=== PATIENT | male | born 1970 | race Caucasian/White ===

== ENCOUNTER → 2025-02-14 13:03 | Outpatient (REF) | payer BC, SELFPAY | LOC: RCS 13:03 | PROVIDERS: ATTENDING PHYSICIAN Internal Medicine; FAMILY PHYSICIAN Family Medicine | DX: I10 Essential (primary) hypertension (principal); Q23.1 Congenital insufficiency of aortic valve; I35.1 Nonrheumatic aortic (valve) insufficiency | CPT/HCPCS: 93306 ==

== ENCOUNTER 2025-08-12 12:18 | Inpatient (IN) | payer BC, SELFPAY ==
[2025-08-12] VITALS (51 sets, daily range): BP systolic 107–159; BP diastolic 56–91; BMI 41.5; BMI 42.8
--- NOTE | 2025-08-12 11:07 | ED TECH ---
A STROKE ALERT was called #[id number]# Per @11:07 AM.Cat Scan Notified.
--- NOTE | 2025-08-12 11:09 | CON.NEURO4 ---
Addendum entered and electronically signed by Kalpesh Bae MD 08/12/25 16:27:
Studies reviewed.
I have personally examined the patient. I reviewed and agree with the PUBLIC HEALTH ASSISTANT's Note.
My addenda:
Awake, alert, interactive. No acute distress.
Speech intact.
Follows 2-step requests w/o difficulty. No tremor.
Extra-ocular movements grossly intact.
Facial movements full and symmetric. Hearing intact to normal conversational volume.
Normal UE movements bilaterally.
Neck: full ROM.
Chest: no dyspnea
Heart: no JVD
Ext: (-) Clubbing, (-) Cyanosis, (-) Edema
IMPRESSIONS/RECOMMENDATIONS:
Abrupt onset of right homonymous hemianopsia, minimally demonstrated by clinical exam, clearly demonstrated by inability to read and by CT perfusion demonstrating a left occipital penumbra
Abrupt onset of acute ischemic stroke
Most likely due to
Recommendations:
� administer IV Tenecteplase (TNK) per protocol urgently while keeping patient's blood pressure to a goal of systolic less than 185 and diastolic less than 110 mmHg during infusion of TNK
� place the patient in medical ICU
� goal blood pressure over the next 24 hours would be less than 180/105 mmHg
� check MRI of the brain within 22-32 hours of TNK without contrast for localization of the stroke
� check �MRA of the head without contrast and an MRA of the neck with contrast
� hold all antiplatelets, OAC meds, DOAC meds, heparinoids for next 24 hours
� check lipid panel and hemoglobin A1c
� start atorvastatin 80 mg at bedtime if LDL greater than 70
� goal blood glucose levels for patient would be less than 180 mg/dL
� Speech, PT, OT evaluations needed
� DVT prophylaxis with sequential compression devices over next 24 hours, can be started on Enoxaparin subcutaneous for DVT prophylaxis beginning 24 hours after TNK provision.
� medical educational materials will be provided
� check an echocardiogram, with the assistance of cardiology, consider transesophageal echocardiogram based on patient's relatively young age
Total Critical Care Time= 45 minutes.
The neurological system is affected and the action required by me to prevent further deterioration or potential was control over the item listed first in the Impressions and Recommendations section of this note.
I was present and personally examined the patient. I discussed patient care with other professional health care providers.
Also discussed with family.
We will follow.
Original Note:
Documented by User: Shiela Woodward NP 08/12/25 13:09
Consultation - Neurology 4
-
CONSULTING PHYSICIAN: Kalpesh Bae MD
REFERRING PHYSICIAN: ER/Dr. Watkins
DICTATED BY: HANH Moreira
DATE/TIME OF REQUEST: 08/12/25
DATE/TIME OF CONSULTATION: 08/12/25
Reason for Consultation: Stroke Alert
History of Present Illness:
This is a 55-year-old male who has presented to the hospital with report of right-sided vision loss. Patient reports that he woke up around 0315 this morning in his usual state. At 0940, he was sitting at his desk this morning at work when he
suddenly couldn't see the words on the right side of his computer screen. His vision did not improve, prompting him to come to the ER for evaluation. CT head and CTA head/neck was obtained on arrival and is negative for any acute abnormalities. CT
perfusion is suggestive of a hyperacute lack of blood flow in the left occipital lobe. NIHSS is 1 for a bilateral right field cut. He notes having a left temporal head pressure with symptom onset, that has mostly resolved now. He denies any
dizziness, speech/swallow difficulty, numbness, and weakness. He denies any history of migraines, regular headaches, or symptoms like this in the past. He is not taking any blood-thinning medications.
Past Medical History: HTN, HLD, MEAGAN (cap), obesity
Surgical History: back surgery, hand surgery
Family History: Paternal grandfather- ALS
Social History: Occasional alcohol. Denies tobacco and illicit drug use.
Allergies: No known allergies.
Home Medications: See below.
Review of Symptoms:
Patient denies any fever, headache, chest pain, shortness of breath, GI or symptoms.
�Per the HPI.�All systems are reviewed negative except above.
Physical Exam:
The patient is afebrile, abdomen is nondistended, breathing is unlabored, and skin is warm and dry, no edema.
NIH Stroke Scale:
I performed the NIH stroke scale on the patient on 08/12/25 at 1100. The patient scored 1 points on the NIH stroke scale assessment, which were assigned as follows: See below.
Neurologic Examination:
The patient is awake, alert and oriented x 3. He is able to follow commands and answer questions appropriately. There is no aphasia or dysarthria. On cranial nerve assessment, pupils are 3 mm bilateral, round and reactive to light and
accommodation. Visual diaz are grossly intact to finger wave but are reduced on the right side bilaterally with reading, only able to see left half of words. Extraocular movements are intact. Facial sensations are intact and bilaterally
symmetrical, there is no facial asymmetry. Hearing is intact bilaterally to normal conversation volume. Tongue palate and uvula are midline. Sternocleidomastoid strengths are full bilaterally. Motor strengths are 5/5 bilateral upper and lower
extremities on medical research Lefor scale. There is no drift or involuntary movement noted. There was no extinction noted on double simultaneous stimulation. Coordination is intact by finger to nose bilaterally.
Lab Results: See below.
Neuro Imaging:
1. CT Head 08/12/25: No acute intracranial abnormality. ASPECT score: 10.
2. CTA Head/Neck 08/12/25: No CTA evidence for high-grade stenosis or occlusion of the [place] or the arterial vasculature in the neck.
3. CT Perfusion 08/12/25: CBF 0, TMAX 18ml in the left occipital lobe.
Differentials for the patient's presentation include:
1. Concern for an acute ischemic stroke producing right-sided visual disturbance given penumbra on CT brain perfusion imaging.
Patient has the following risk factors for their symptoms: HTN, HLD
IV Tenecteplase/IAT candidacy: Candidate for TNK given debilitating neurological deficit, no LVO for IAT.
Recommendations:
� administer IV Tenecteplase (TNK) per protocol urgently while keeping patient's blood pressure to a goal of systolic less than 185 and diastolic less than 110 mmHg during infusion of TNK
Reviewed risks/benefits of TNK with patient and his spouse
� place the patient in medical ICU
� goal blood pressure over the next 24 hours would be less than 180/105 mmHg
� check MRI of the brain within 22-32 hours of TNK without contrast for localization of the stroke
� hold all antiplatelets, OAC meds, DOAC meds, heparinoids for next 24 hours
� check lipid panel and hemoglobin A1c
� start atorvastatin 80 mg at bedtime when patient is able to take PO
� goal blood glucose levels for patient would be less than 180 mg/dL
� Speech, PT, OT evaluations needed
� DVT prophylaxis with sequential compression devices over next 24 hours, can be started on Enoxaparin subcutaneous for DVT prophylaxis beginning 24 hours after TNK provision.
� medical educational materials will be provided
� check an echocardiogram
We will follow.
Discussed patient care with: Dr. Bae, the patient, patient's spouse
Vital Signs and Labs
-
Vital Signs and Labs:
Vital Signs
Pulse Resp BP Pulse Ox
87 21 146/65 96
08/12/25 11:32 08/12/25 11:32 08/12/25 11:30 08/12/25 11:32
Medications
-
Home Medications
�Medication �Instructions �Recorded
lisinopril 20 mg tablet 20 mg PO DAILY 08/12/25
NIH Stroke Score
Subsequent NIH Scale
Date of Subsequent NIH Scale: 08/12/25
Time of Subsequent NIH Scale: 11:00
NIH Stroke Score
Level of Consciousness: 0 - Alert
LOC Questions: 0-Answers both correctly
LOC Commands: 0-Performs both correctly
Best Horizontal Gaze: 0-Normal
Visual Diaz: 1=Partial hemianopia
Facial Palsy: 0=Normal, symmetrical
Motor - Right Arm: 0=No drift 10 seconds
Motor - Left Arm: 0=No drift 10 seconds
Motor - Right Le-No drift 5 seconds
Motor - Left Le-No drift 5 seconds
Limb Ataxia: 0-Absent
Sensation: 0-Normal
Best Language: 0-No aphasia
Dysarthria: 0-Normal
Extinction and Inattention: 0-No abnormality
NIH Total Score:: 1
Modified [place] (mRS) Score
Modified [place] Scale (mRS): Slight disability. Able to look after own affairs.
Score: 2
Alteplase Contraindication
Inclusion and Exclusion criteria reviewed: Yes
IAT Contraindications: Imaging doesn't show large vessel occlusion as cause of stroke

Documented by User: Kalpesh Bae MD 08/12/25 16:25
NIH Stroke Score
NIH Stroke Score
NIH Total Score:: 1
Modified [place] (mRS) Score
Score: 2
--- NOTE | 2025-08-12 11:13 | ED.GENMED ---
History of Present Illness
General
Chief Complaint: Visual Problem
Source: patient
Exam Limitations: none
Time Seen by Provider: 08/12/25 10:57
Nursing documentation reviewed up to this point in time: agreed with
History of Present Illness
History of Present Illness:
Patient with history of hypertension on lisinopril, presents to ED secondary to sudden onset of visual deficit while he was at work around 9:40 AM. Per patient, as he was looking in the computer, he had difficult visualizing right half of the
monitor. Denies headache. Denies nausea or vomiting. Denies dizziness. Denies loss of sensation or weakness. Denies difficulty speech or swallowing. Denies difficulty with ambulation. Denies previous history of similar symptoms. Denies
recent illness. Denies recent change in medications or diet.
Review of Systems
Review of Systems
Allergies reviewed?: Yes
All Other Systems: ROS reviewed and negative except as documented in HPI and ROS
Constitutional: Reports no symptoms; Denies fever
Respiratory: Reports no symptoms
Cardiac: Reports no symptoms
ABD/GI: Reports no symptoms
Musculoskeletal: Reports no symptoms
Skin: Reports no symptoms
Neurological: Reports other (visual field deficit)
Phy Exam
Physical Exam
Physical Exam:
Physical Exam
General: no apparent distress, not acutely ill. afebrile
Head: nc/at. eomi
Neck: supple. no meningeal signs.
Heart: s1/s2 regular rate and rhythm
Lungs: no acute respiratory distress. clear bilaterally
Abdomen: normal bowel sounds. not tender.
Neuro: alert and oriented x 3. no focal sensory/motor deficit. normal speech. right hemianopia noted
Skin: no rash
Psychiatric: well kept. interactive and cooperative
Extremities: no edema. no calf tenderness.
Course
Orders/Labs/Results
Orders:
Orders
08/12/25 10:29
CT HEAD STROKE ALERT W/o Cont Urgent
Reason For Exam: vision changes
08/12/25 11:[address]
CT BRAIN PERF STROKE ALERT Urgent
Comment:
Reason For Exam: aphasia
CT HEAD/NECK ANG STROKE ALERT Stat
Comment:
Reason For Exam: stenosis
08/12/25 11:12
Electrocardiogram (*1) Urgent
Reason for Study: TIA/Stroke
NEUROLOGY CONSULT Urgent
Consulting Provider: Kalpesh Bae
Was physician already notified: Yes
Reason for consult: visual field deficit
EKG- Treatment ONCE
08/12/25 11:20
Tenecteplase [Tnkase] 25 mg Syringe [Syringe Non-Pump] 0 ml IV NOW
Provider explained risk/benefits to patient &/or caregiver?: Yes
Blood pressure: 121/83
08/12/25 11:35
Complete Blood Count/No Diff Urgent
Comprehensive Metabolic Panel Urgent
Magnesium Urgent
PTT Urgent
Prothrombin Time Urgent
Abnormal Lab Results
08/12/25
11:35
RBC 4.46 L 10^6/uL
(4.70-6.10)
MCV 97.8 H fL
(80.0-94.0)
MCH 32.3 H pg
(27.0-31.0)
Sodium 133 L mmol/L
(135-145)
BUN 21 H mg/dl
(9-20)
08/12/25 11:35
08/12/25 11:35
Vital Signs
Initial and Last Documented VS:
Initial Vital Signs
Pulse Resp BP Pulse Ox
81 18 121/83 94
08/12/25 10:21 08/12/25 10:21 08/12/25 10:21 08/12/25 10:21
Last Documented Vital Signs
Temp Pulse Resp BP Pulse Ox
98.2 F 85 18 135/68 92
08/13/25 15:15 08/13/25 10:08 08/13/25 10:02 08/13/25 10:08 08/13/25 09:00
MDM/Problems Addressed
MDM/Problems Addressed:
After initial evaluation, stroke alert activated. Patient currently being evaluated by Dr. Bae, neurology.
CT head: NAD. recommends administering TnK.
Will admit to ICU for close monitoring
Critical care statement: A total of 30 minutes of critical care time was provided for this patient. This includes management of unstable vital signs, evaluation of the patient at bedside, reviewing the patient's pertinent medical records, discussion
with consultants, review of old EKGs and review of pertinent medical records. This time with separate from time utilized to perform the aforementioned documented procedures
*Pulse Oximetry
SaO2: 94
Oxygen Mode of Delivery: Room air
Patient hypoxic: no
*Critical Care Note
Total Time (30-74mins, 75-104mins- exclusive of procedures): 30 min
ED Attending Note
-
Portions of this chart may have been created with voice recognition software.� Occasional wrong word or��sound alike� substitutions may have occurred due to the inherent limitations of voice recognition software.
Discharge Plan
Departure
Patient Disposition: Admit
Date of Disposition: 08/12/25
Time of Disposition: 11:29
Admit to: ICU
Presentation/result/management discussed w/ accepting MD/DO: Hospitalist
Patient with high blood pressure during this ER visit?: Yes
Discharge Problem:
Visual field cut
Interventions
Interventions:
*General Assessment Last Done: 08/12/25 10:21
*Neglect/Abuse Screening Last Done: 08/12/25 11:39
*ED- Fall Risk Assessment Last Done: 08/12/25 11:39
*ED Influenza Vaccine History Last Done: 08/12/25 11:39
*Nursing Disposition Last Done: 08/12/25 11:59
ED- Neurological Assessment Last Done: 08/12/25 11:24
ED-EENT Assessment Last Done: 08/12/25 11:39
ED Swallowing Screen Last Done: 08/12/25 11:39
Discharge Date and Time
Discharge Date/Time: 08/12/25 12:01
[2025-08-12] MEDS: TNKASE 5 MG IV (11:36)
[2025-08-12 11:42] LABS: Hematocrit 43.6 % (39.0-52.0); Hemoglobin 14.4 g/dL (13.0-18.0); Mean Corp Hgb Conc. 33.0 g/dL (33.0-37.0); Mean Corpuscular Volume 97.8 fL (80.0-94.0); Platelet Count 226 10^3/uL (130-400); Red Cell Dist. Width 12.6 % (11.5-14.5)
--- NOTE | 2025-08-12 11:59 | EDRN ---
this RN called the receiving ICU nurse Helen SKAGGS and gave verbal report
[2025-08-12 12:04] LABS: ALT (SGPT) 32 U/L (0-50); AST (SGOT) 25 U/L (17-59); Albumin 4.1 g/dl (3.5-5.0); Alkaline Phosphatase 61 U/L (38-126); Blood Urea Nitrogen 21 mg/dl (9-20); Calcium 9.5 mg/dl (8.4-10.2); Carbon Dioxide 24 mmol/L (22-30); Chloride 105 mmol/L (98-107); Estimated Creatinine Clearance 104 ml/min; Glucose 96 mg/dl (70-99); Magnesium 2.1 mg/dl (1.6-2.3); Potassium 4.8 mmol/L (3.5-5.1); Sodium 133 mmol/L (135-145); Total Protein 6.9 g/dl (6.3-8.2); eGFR > 60.00
[2025-08-12 12:10] LABS: INR 1.03; PT 13.8 Sec (11.4-14.6)
[2025-08-12 12:11] LABS: APTT 28.5 Sec (23.4-35.0)
--- NOTE | 2025-08-12 12:38 | CON.INTV ---
Consultation
Consultation Request
Date/Time Consultation Requested: 08/12/2025
Date/Time Consultation Performed: 08/12/2025
Medical History
-
Chief Complaint: Change in Vision
History of Present Illness:
This is a 55 y/o male with pmhx of essential hypertension, hyperlipidemia, and obstructive sleep apnea on CPAP who presented tot he ED on 08/12 with sudden onset of change in vision. He was attempting to read a string of numbers, but could only read
the first one before the others 'vanished'. He is nearsighted at baseline with glasses. He checked with his colleagues to ensure he was not having any speech deficits. His symptoms began around 9:40AM. He had no other associated symptoms including
headache, nausea, vomiting, loss of sensation, weakness, or difficulty ambulating. He decided to come to the hospital because he was concerned he was having a stroke.
In the ED, right hemianopia was noted on neurological exam. His vital signs were within normal limits with a BP of 121/83. EKD showed sinus rhythm with premature atrial complexes. CBC was revealed normal hemoglobin at 14.4, normal WBC at 6.3, low
sodium at 133, normal creatinine at 1.0. CT Head revealed no acute intracranial abnormalities. CTA Head/Neck showed no evidence for high-grade stenosis of occlusion of the [place] or of the arterial vasculature in the neck.
Neurology was consulted and he was administered Tenecteplase 25mg at 11:20AM and he was admitted to the ICU for further management.
Currently, he is doing well. He reports around 1 hours after TNK administration his vision began to improve, though he reports he still has some difficulty with some fonts and it may take him a few extra seconds to read certain words including my
name christiano.
Past Medical History
Past Medical History: HTN (Checks BPs at home, usually around 120/80), Hypercholesterolemia (Per outside records, last documented 12/2024) and Other (Bicuspid aortic valve, Obstructive Sleep Apnea on CPAP)
Past Surgical History: Tonsilectomy (1981) and Other (Shoulder surgery in 1986, hand surgery in 2004, back surgery in 2014.)
Social History
Tobacco: Non-smoker
Alcohol: Occasional
Drug: None
Personal:
Living: With Family
Employment: Employed
Family History
Family History: Other (Grandfather ALS)
Allergies / Home Medications
Allergies
Allergy/AdvReac Type Severity Reaction Status Date / Time
No Known Allergies Allergy Unverified 08/12/25 10:23
Home Medications
�Medication �Instructions �Recorded �Confirmed �Last Taken �Type
lisinopril 20 mg tablet 20 mg PO DAILY 08/12/25 08/12/25 Unknown History
Review of Systems
-
History Source: Patient
Constitutional: No Symptoms
Respiratory: No Symptoms
Cardiac: No Symptoms
Abdomen/GI: No Symptoms
Musculoskeletal: No Symptoms
Neuro: Other (Right sided vision loss, resolving)
Vitals / Labs / Diagnostic Testing
Vital Signs
Temp Pulse Resp BP Pulse Ox
98.5 F 77 15 159/82 96
08/12/25 11:39 08/12/25 12:17 08/12/25 12:17 08/12/25 12:17 08/12/25 12:00
Lab Data
08/12/25 11:35
08/12/25 11:35
Laboratory Results
08/12/25
11:35
PT 13.8
INR 1.03
APTT 28.5
Diagnostic Testing:
Physical Exam
-
HEENT: Normocephalic
Cardiovascular: S1/S2 and Regular Rhythm
Respiratory: Clear
Neurology: Awake, Alert, Oriented, No Motor Deficits (Muscle strength 5/5 bilateral upper and lower extremities) and Other (Some reported difficulty with reading the 2nd half of my name off my name badge from about 4 feet away with glasses on. )
Skin: Warm and Dry
General: Comfortable
Assessment
-
Assessment:
This is a 55 y/o male with pmhx of essential hypertension, hyperlipidemia, who presented to the ED on 08/12 with sudden onset of difficulty visualizing the right side of his computer monitor while at work who was administered TNK in the ED.
Plan:
Acute Right-Sided Visual Field Deficit
Concern for acute ischemic stroke, improving s/p TNK
CT Head 08/12: No acute intracranial abnormalities
CTA Head/Neck 08/12: No evidence for high-grade stenosis of occlusion of the [place] or of the arterial vasculature in the neck.
CT Perfusion 08/12: Decrease in blood flow in left occipital region
X-ray Chest: Low lung volumes. No acute cardiopulmonary process.
S/p TNK in the ED at 11:20AM 08/12
Neurology is following, will appreciate their insight into his case
Speech, PT/OT, Physiatry have been consulted by primary team, will appreciate their insight.
Continue neuro checks Q15 min x 2 hours, Q30 minutes x 6 hours, Q1 hour x 16 hours, Q4 hours for 24 hours, then each shift and for changes
Thrombolytic precautions for 24 hours s/p TNK. Pneumatic compression sleeves for 24 hours, will re-evaluate DVT prophylaxis in the AM after 24 hours have passed.
Will monitor
Hypertension
Patient takes Lisinopril 20mg QD at home, currently being held
Continue Labetalol 5mg IV Q6H PRN for elevated blood pressure
Patient may ultimately need Cardene drip, will keep a close eye on his blood pressures over the next 24 hours to ensure goal of less than 180/105
Will monitor
Obstructive Sleep Apnea
Patient�s will be bringing his CPAP into the hospital for his use
Continue CPAP as tolerated each night
Hyperlipemia
By outside record report, last documented in 12/2024, patient not currently on statin therapy
Currently controlled with diet and exercise
Pending Lipid Panel, A1c
--- NOTE | 2025-08-12 13:06 | HPS.HSE ---
Addendum entered and electronically signed by Bruce Aguayo MD 08/12/25 19:13:
I have personally supervised the history, physical exam, medical decision-making, and care plan for this patient in conjunction with the resident. I have reviewed and discussed the resident's documentation and findings. I confirm that this note
accurately reflects my supervision and input in the care of this patient.
History
55-year-old with past medical history of hypertension, suspected bicuspid aortic valve, aortic regurgitation, hyperlipidemia, prediabetes, obesity, and MEAGAN (on CPAP) presented to the [facility] emergency room due to sudden onset of loss of vision on the
right side while he was at work around 9:40 AM on 08/12/25. 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 Patient
denied lightheadedness, speech difficulty, numbness/weakness/tingling or any other neurological symptoms. After arrival to the emergency department, CT perfusion showed evidence of hyperacute lack of blood flow in the left occipital lobe. Vital
signs were stable.
Physical Exam
General: Not in acute distress
HEENT: Normocephalic
Cardiovascular: S1/S2 and Regular Rhythm
Respiratory: Clear to Auscultation Bilaterally
Neurology: Awake, alert and oriented x 3. Cranial Nerves intact except visual duran are grossly intact to finger wave but are reduced on the right side bilaterally. Motor
strengths are 5/5 bilateral upper and lower extremities. Sensation grossly intact bilaterally throughout.
Skin: Warm and Dry
General: Comfortable
Assessment/Plan
Abrupt onset of right homonymous hemianopsia/left occipital penumbra
Abrupt onset of acute ischemic stroke
-Status post IV Tenecteplase (TNK) at 11:36 AM on 08/12/25
-Goal blood pressure over the next 24 hours is less than 180/105 mmHg -- prn Labetalol IV ordered
-MRI of the brain within 22-32 hours of TNK without contrast for localization of the stroke
-MRA of the head without contrast and an MRA of the neck with contrast
-Hold all blood thinners for the next 24 hours
-Lipid panel and hemoglobin A1c
-Start high intensity statin atorvastatin 80 mg at bedtime
-Goal blood glucose levels for patient would be less than 180 mg/dL
-Speech, PT, OT evaluations needed
-DVT prophylaxis with sequential compression devices over next 24 hours (no pharmacologic DVT prophylaxis), can be started on Enoxaparin subcutaneous for DVT prophylaxis beginning 24 hours after TNK
-Cardiology consulted for RAYNA consideration for tomorrow
-Continue to monitor patient in the ICU
Hypertension
-Blood pressure control as above post-TNK
Suspected bicuspid aortic valve
Aortic regurgitation
Hyperlipidemia -- continue statin as above
Prediabetes
Obesity
MEAGAN (on CPAP)
Original Note:
Family Physician
-
Family Physician: Yanni Abad
Chief Complaint
-
Hemianopic
History of Present Illness
55-year-old [id number] male with past medical history of hypertension presented to the ED due to sudden onset of loss of vision on the right side while he was at work around 9:40 AM. Patient was not able to visualize the full number on the
label of his tool while seeing his computer screen at work. 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 Patient denies lightheadedness, speech difficulty, numbness/weakness/tingling. No history of headaches. Patient was not on any blood
thinners. No history of recently being sick. No history of head trauma/falls.
ER course�on arrival blood pressure at�121/83, heart rate�81, afebrile, CBC unremarkable, sodium at 133,, BUN�21, creatinine�1. Coags normal. CT head, CTA head/neck�negative for acute abnormalities. CT perfusion with evidence of hyperacute lack
of blood flow in the left occipital lobe. NIH stroke scale at arrival�1.
Medical History
Past Medical History
Past Medical History: Reports HTN and Hypercholesterolemia
Past Surgical History: Reports Other (Lumbar microdiscectomy, left shoulder and hand surgery,)
Additional Past Surgical History:
Lumbar microdiscectomy, left shoulder surgery, left hand surgery.
Social History
Tobacco: Non-smoker
Alcohol: Occasional
Drug: None
Personal:
Living: With Family
Employment: Employed
Family History
Family History: Other (Paternal grandfather with ALS)
Allergies / Home Medications
Allergies reflects when Allergies were last updated in [employer].
Home Medications with original date entered in [employer]
Allergy/Medication List:
Allergies
Allergy/AdvReac Type Severity Reaction Status Date / Time
No Known Allergies Allergy Unverified 08/12/25 10:23
Home Medications
lisinopril 20 mg tablet 20 mg PO DAILY 08/12/25
Review of Systems
-
A 12 point ROS was completed and negative except as noted: Yes
Physical Exam
Vital Signs
Vital Signs
Temp Pulse Resp BP Pulse Ox
98.5 F 75 17 143/88 96
08/12/25 11:39 08/12/25 12:47 08/12/25 12:47 08/12/25 12:47 08/12/25 12:00
Physical Exam
General: Well Developed, Well Nourished and No Apparent Distress
HEENT: NormoCephalic and Anicteric
Respiratory: Clear
Cardiac: S1/S2 and Regular Rhythm
GI: Soft, Non Tender, Non Distended and Normal Bowel Sounds
Skin: Warm and Dry
Neuro: Awake, Alert, Oriented, AO x 3, Nonfocal/grossly intact, Cranial Nerves Intact and No Sensory Deficits; No Slurred Speech or Facial Droop
Psych: Calm
Laboratory Results
-
08/12/25 11:35
08/12/25 11:35
Laboratory Results
PT 13.8 Sec (11.4-14.6) 08/12/25 11:35
INR 1.03 08/12/25 11:35
APTT 28.5 Sec (23.4-35.0) 08/12/25 11:35
Total Bilirubin 0.8 mg/dl (0.2-1.3) 08/12/25 11:35
AST 25 U/L (17-59) 08/12/25 11:35
ALT 32 U/L (0-50) 08/12/25 11:35
Alkaline Phosphatase 61 U/L (38-126) 08/12/25 11:35
Impression/Plan
-
IMPRESSION: 55-year-old right-hand dominant male presenting with acute vision deficit on the right side. CT perfusion imaging with lack of blood flow in the left occipital lobe.
Assessment/PLAN:
#Acute ischemic stroke
Presentation with visual deficit on the right side.
CT perfusion imaging with evidence of lack of blood flow in the left occipital lobe.
CT head, CTA�no acute abnormalities.
EKG�sinus rhythm with PACs
Neurology on board
S/p TNK in the ER.
Admitted to ICU
Q 4 neurochecks
Goal blood pressure <180/105
Patient with history of hyperlipidemia, but not on statins.
Check lipid panel, HbA1c
Start atorvastatin 80 mg p.o.
Speech, PT/OT eval.
Speech cleared for regular diet, thin liquids.
Check echo
Cardiology consult for RAYNA, as per neuro recommendation.
#Essential hypertension
Hold home lisinopril for now.
Labetalol as needed
Patient with cardiac history of bicuspid aortic valve, aortic regurgitation
Cardiology consulted
#Hypercholesterolemia
History of hyperlipidemia, currently not on statins.
Check lipid panel, check HbA1c.
Start atorvastatin 80 mg.
Diet�regular, thin liquids (after cleared by speech)
DVT prophylaxis�SCDs
Full code
--- NOTE | 2025-08-12 13:19 | PTCARENOTE ---
Pt admitted to ICU bed 3359 from ED s/p TNK. Pt AAOx3. NIH 0. On arrival, pt stated he could see words but was slow to process what they said. Pt now able to read without difficulty. No other deficits noted on exam. VSS. Speech at bedside at
this time.
--- NOTE | 2025-08-12 13:47 | CON.CAR ---
Addendum entered and electronically signed by Adriel Kingsley MD 08/12/25 15:19:
I saw and evaluated the patient, and I provided the substantive portion of the medical decision making.
I reviewed and agree with the note by Ms Baron and it accurately reflects our care.
I personally performed the medical decision making of the this encounter and my assessment and plan is below:
55-year-old male (known to Dr. 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
deficit. CT perfusion suggestive of hyperacute lack of blood flow in the left occipital lobe. He received TNK.
TTE pending
RAYNA tomorrow if TTE unremarkable with ILR implant if RAYNA is unremarkable.
Original Note:
Consultation
Consultation Request
Date/Time Consultation Requested: 08/12/2025 13:40
Date/Time Consultation Performed: 08/12/2025
Requesting Provider: Dr. Donna Brooks [MD Resident]
Performing Provider: HANH Harris for Dr. Kingsley
Reason for Consultation: CVA
Medical History
-
Chief Complaint: Visual deficit
History of Present Illness:
Mando Lopez (Bill) is a 55-year-old male (known to Dr. Zazueta, his primary sizing machine operator), with hypertension, suspected bicuspid aortic valve, aortic regurgitation, hyperlipidemia, prediabetes, obesity, and MEAGAN (on CPAP) presented to the
emergency department with a visual deficit. He was at work trying to read a parts number on a box. He then took a picture of the box to see if he could read it more clearly. He was unable to read the 8 digit number. He presented to the
emergency department. NIHSS score of 1 for the visual disturbance. CT perfusion suggestive of hyperacute lack of blood flow in the left occipital lobe. He received TNK. Cardiology was consulted for the possibility of RAYNA/ILR. He denies chest
pain, dizziness, shortness of breath, and syncope/presyncope.
Past Medical History
Past Medical History: HTN, Hypercholesterolemia, Valvular Disease (Suspected bicuspid aortic valve) and Other (Prediabetes, MEAGAN on CPAP)
Past Surgical History: Orthopedic
Social History
Tobacco: Non-Smoker
Alcohol: Occasional
Personal:
Living: With Family
Employment: Employed
Family History
Family History: Reviewed & Not Pertinent
Allergies / Home Medications
Allergy/AdvReac Type Severity Reaction Status Date / Time
No Known Allergies Allergy Unverified 08/12/25 10:23
�Medication �Instructions �Recorded �Confirmed �Type
lisinopril 20 mg tablet 20 mg PO DAILY Blood Pressure 08/12/25 08/12/25 History
Review of Systems
-
History Source: Patient
All other systems: Negative unless noted
Constitutional: No Symptoms
EENT: No Symptoms
Respiratory: No Symptoms
Cardiac: No Symptoms
Abdomen/GI: No Symptoms
: No Symptoms
Musculoskeletal: No Symptoms
Skin: No Symptoms
Neurological: No Symptoms
Endocrine: No Symptoms
Hematologic/Lymphatic: No Symptoms
Physical Exam
Vital Signs
Temp Pulse Resp BP Pulse Ox
98.0 F 78 18 131/69 93
08/12/25 13:32 08/12/25 13:32 08/12/25 13:32 08/12/25 13:32 08/12/25 13:15
Lab Results
08/12/25 11:35
08/12/25 11:35
Physical Exam
General: Well Developed, Well Nourished, No Apparent Distress and Comfortable
HEENT: Normocephalic, Anicteric and Moist Mucous Membranes
Respiratory: Clear and Non Labored Respirations
Cardiac: S1/S2, Regular Rhythm and Murmur (II/)
Breast: Deferred by me
GI: Soft, Non Tender, Non Distended and Normal Bowel Sounds
Rectal: Deferred by Provider
Genito-urinary: No Costovertebral Tender
Musculoskeletal: No Clubbing, No Cyanosis and No Edema
Skin: Warm and Dry
Neuro: AO x 3
Hematologic/Lymphatic: No Lymphadenopathy
Psych: Calm
Impression / Plan
-
I/P: 55M with hypertension, suspected bicuspid aortic valve, aortic regurgitation, hyperlipidemia, prediabetes, obesity, and MEAGAN (on CPAP) presented to the emergency department with a visual deficit.
Primary sizing machine operator: Dr. Zazueta
CVA, s/p TNK
- Presented with visual field cut
- CT perfusion suggestive of hyperacute lack of blood flow in the left occipital lobe s/p TNK
- RAYNA with possible ILR after tomorrow
- Follow telemetry, currently sinus rhythm with PACs
- Hold antiplatelet with TNK, per neurology
- HgbA1c pending, start high intensity statin
Hypertension
- Per neurology goal BP <185 SBP & 110 DBP
- Follow BP with lisinopril on hold
Suspected bicuspid aortic valve with mild to moderate AR
- TTE today & RAYNA in a.m. as above
Hypercholesterolemia
- Declined statin in the outpatient setting, recommend high intensity statin in the setting CVA
- Most recent outpatient LDL 117, fasting lipid panel in a.m.
Prediabetes, HgbA1c pending
MEAGAN, continue CPAP
Obesity, BMI 42.7, affects all aspects of care, he would benefit from weight loss
Data Reviewed
-
EKG: Report Reviewed by me
Radiology: Report Reviewed by me
Medical Tests (Nuc Med, Echo etc): Report Reviewed by me
Labs: Labs Reviewed by me
Old Records: Reviewed
--- NOTE | 2025-08-12 16:00 | PTCARENOTE ---
NIH 0. Pt reports vision improved. Ability to read improved but slightly slow. All other assessments unchanged.
--- NOTE | 2025-08-12 16:04 | PTOTSP ---
Speech Therapy Evaluation:
Swallowing:
Pt with acute risk factor for dysphagia including CVA workup, however oropharyngeal swallow appears functional at bedside. No s/sx of aspiration across trials, WBC WNL, pt passed 3oz swallow screen, on room air, without dysphagia hx, and CXR without
acute cardiopulmonary process. Recommend regular solids and thin liquids, meds as tolerated. No further MATHEMATICAL TECHNICIAN services recommended for swallowing.
Language:
Given pt undergoing CVA workup with R visual deficits, the QAB Form 1 was administered. Pt earned an overall score of 9.83 indicative of 'no aphasia' per parameters of this assessment. Pt earned full credit for all subtests besides reading. Pt was
able to read single words, however as words and sentences became more complex, pt lost points for delayed response time. Recommend ongoing MATHEMATICAL TECHNICIAN services at acute care level to assess writing and to ensure pt without form of alexia/agraphia.
[2025-08-12 16:10] LABS: HDL Cholesterol 45 mg/dl; LDL Cholesterol, Calculated 140 mg/dl; Very Low Density Lipoprotein 32 mg/dl (0-30)
--- NOTE | 2025-08-12 16:25 | CARDSERVLU ---
Echocardiogram with Lumason completed after protocol screening completed. Allergies verified.
Patent IV site: ___R wrist__
IV site flushed with 0.9% NaCl pre and post administration.
Diluted bolus method utilized to enhance visualization of ventricular huffman.
Total volume given: __3__ mL
Patient tolerated all procedures well without complications.
[2025-08-12] MEDS: LIPITOR 80 MG PO (18:32)
--- NOTE | 2025-08-12 21:19 | PTCARENOTE ---
Assumed care at 1900. NIH 0 but complains of trouble 'processing' words. Normal sinus rhythm on the monitor. See nursing assessment on the worklist for assessment details. No signs of bleeding.
[2025-08-13] VITALS (25 sets, daily range): BP systolic 100–135; BP diastolic 50–91; BMI 42.2
--- NOTE | 2025-08-13 00:18 | PTCARENOTE ---
No changes from previous assessment. Refer to stroke thrombolytic therapy in the worklist for details on neuro checks. Remains NSR on the monitor. Patient is wearing home CPAP.
--- NOTE | 2025-08-13 02:19 | DOWNTIME ---
There was a [employer] Client Gis Developer Downtime on 08/13/2025 from 0100 to 08/13/2025 at 0215. Downtime documentation of patient's care, including medication administrations, has been reconciled in the electronic record per guidelines. Refer to the
patient's paper chart under the miscellaneous tab to see printed paper medication records and downtime forms.
[2025-08-13 04:14] LABS: Hematocrit 47.2 % (39.0-52.0); Hemoglobin 15.6 g/dL (13.0-18.0); Mean Corp Hgb Conc. 33.1 g/dL (33.0-37.0); Mean Corpuscular Volume 97.7 fL (80.0-94.0); Platelet Count 255 10^3/uL (130-400); Red Cell Dist. Width 12.7 % (11.5-14.5)
[2025-08-13 04:23] LABS: INR 0.97; PT 13.2 Sec (11.4-14.6)
[2025-08-13 04:24] LABS: APTT 29.0 Sec (23.4-35.0)
[2025-08-13 04:42] LABS: Blood Urea Nitrogen 21 mg/dl (9-20); Calcium 10.1 mg/dl (8.4-10.2); Carbon Dioxide 22 mmol/L (22-30); Chloride 108 mmol/L (98-107); Estimated Creatinine Clearance 95 ml/min; Glucose 109 mg/dl (70-99); HDL Cholesterol 40 mg/dl; LDL Cholesterol, Calculated 145 mg/dl; Potassium 4.7 mmol/L (3.5-5.1); Sodium 136 mmol/L (135-145); Very Low Density Lipoprotein 33 mg/dl (0-30); eGFR > 60.00
--- NOTE | 2025-08-13 06:29 | PTCARENOTE ---
No changes from previous assessment. NPO at midnight with plan for RAYNA and MRI today.
--- NOTE | 2025-08-13 07:27 | W.PN.INTV ---
Today's Communication / Plan
Recommendations
RAYNA today
MRI Head today
Continue atorvastatin
PT/OT evaluation today
Assessment
-
Assessment:
This is a 55 y/o male with pmhx of essential hypertension, hyperlipidemia, who presented to the ED on 08/12 with sudden onset of difficulty visualizing the right side of his computer monitor while at work who was administered TNK in the ED.
Plan:
Acute Right-Sided Visual Field Deficit
Secondary to acute ischemic stroke, improving s/p TNK
CT Head 08/12: No acute intracranial abnormalities
CTA Head/Neck 08/12: No evidence for high-grade stenosis of occlusion of the [place] of [place] or of the arterial vasculature in the neck.
CT Perfusion 08/12: Decrease in blood flow in left occipital region
X-ray Chest: Low lung volumes. No acute cardiopulmonary process.
Pending MRI today
S/p TNK in the ED at 11:20AM 08/12
Neurology is following, will appreciate their insight into his case
Speech, PT/OT, Physiatry have been consulted by primary team, will appreciate their insight.
Continue neuro checks Q15 min x 2 hours, Q30 minutes x 6 hours, Q1 hour x 16 hours, Q4 hours for 24 hours, then each shift and for changes
Thrombolytic precautions for 24 hours s/p TNK. Pneumatic compression sleeves for 24 hours, will re-evaluate DVT prophylaxis later this morning after MRI has resulted
Will monitor
Hypertension
Patient takes Lisinopril 20mg QD at home, currently being held
Continue Labetalol 5mg IV Q6H PRN for elevated blood pressure
Blood pressures have remained well controlled overnight and into today
Will monitor
Bicuspid Aortic Valve
Cardiology is following, will appreciate their insight
RAYNA planned for today
Obstructive Sleep Apnea
Patient's brought his CPAP machine in from home
Continue CPAP as tolerated each night
Hyperlipemia
By outside record report, last documented in 12/2024, patient not currently on statin therapy
Triglycerides: 167, Total Cholesterol 218, LDL 145, HDL 50 per labs on 08/13
A1c 5.6 on 08/13
Continue Atorvastatin 80mg
Subjective Dataa
Subjective Data
Date of Service:
Date of Service: August 13, 2025
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
Subjective:
Patient was resting comfortably when I arrived. He states he is able to read sentences very slowly now, and it takes him a while to ensure that words are correct. Over all he has not noticed a significant change since yesterday when I spoke to him
in his vision. He has been trying to read more to try to regain the ease at which he was able to read previously.
He is free of fevers, chills, headaches, numbness or weakness, cheat pain, shortness of breath, nausea, vomiting.
Objective Data
Data Reviewed
Vital Signs / I&O / Oxygen:
Vital Signs
Temp Pulse Resp BP Pulse Ox
97.5 F 78 14 116/71 94
08/13/25 07:17 08/13/25 07:00 08/13/25 07:00 08/13/25 07:00 08/13/25 06:01
Intake and Output
08/12/25 08/13/25 08/14/25
06:59 06:59 06:59
Intake Total 400 / 400
Output Total 0 / 0
Balance 400 / 400
SaO2 94
Physical Exam
General: Comfortable
HEENT: Normocephalic
Cardiovascular: S1-S2 and Regular Rhythm
Respiratory: Clear
Neurology: Awake, Alert and Oriented
Skin: Warm and Dry
Labs/Micro/Reports
Lab Data
08/13/25 04:00
08/13/25 04:00
Laboratory Results
08/12/25 08/13/25
11:35 04:00
PT 13.8 13.2
INR 1.03 0.97
APTT 28.5 29.0
--- NOTE | 2025-08-13 08:03 | W.PN.CD ---
Today's Communication / Plan
-
RAYNA, then possible ILR today
Impression / Plan
-
I/P: 55M with hypertension, suspected bicuspid aortic valve, aortic regurgitation, hyperlipidemia, prediabetes, obesity, and MEAGAN (on CPAP) presented to the emergency department with a visual deficit.
Primary steam conditioner filling: Dr. Zazueta
CVA, s/p TNK
- threat to life
- Presented with visual field cut
- CT perfusion suggestive of hyperacute lack of blood flow in the left occipital lobe s/p TNK
- Follow telemetry: no A fib so far
- Hold antiplatelet with TNK, per neurology
- cont atorvastatin
-RAYNA, and possible ILR today
Hypertension
- Per neurology goal BP <185 SBP & 110 DBP
- Follow BP with lisinopril on hold
Suspected bicuspid aortic valve with mild to moderate AR
- TTE showed EF 60-65%, mild/mod AR
Hypercholesterolemia
- statin started
Prediabetes, HgbA1c pending
MEAGAN, continue CPAP
Obesity, BMI 42.7, affects all aspects of care, he would benefit from weight loss
Physical Exam
Vital Signs/Labs
Vital Signs
Temp Pulse Resp BP Pulse Ox
97.5 F 78 14 116/71 94
08/13/25 07:17 08/13/25 07:00 08/13/25 07:00 08/13/25 07:00 08/13/25 06:01
08/12/25 08/13/25 08/14/25
06:59 06:59 06:59
Actual Weight 122 kg
08/13/25 04:00
08/13/25 04:00
PT 13.2 Sec (11.4-14.6) 08/13/25 04:00
INR 0.97 08/13/25 04:00
APTT 29.0 Sec (23.4-35.0) 08/13/25 04:00
Magnesium 2.1 mg/dl (1.6-2.3) 08/12/25 11:35
Triglycerides 167 mg/dl (10-149) H 08/13/25 04:00
LDL Cholesterol, Calc 145 mg/dl 08/13/25 04:00
VLDL Cholesterol, Calc 33 mg/dl (0-30) H 08/13/25 04:00
HDL Cholesterol 40 mg/dl 08/13/25 04:00
Physical Exam
Constitutional: No acute distress and Comfortable
EENT: Moist mucous membranes
Cardiovascular: Rhythm & rate is regular, Pedal edema is absent, JVD pressure is normal and Systolic murmur absent
Respiratory: Respiratory effort normal and Lungs clear to auscul.
Neuro/Psych: AO x 3
Data Reviewed
-
Date of Service: August 13, 2025
EKG: Other (Tele: SR, no A fib)
Labs: Labs Reviewed by me
--- NOTE | 2025-08-13 08:24 | W.PN.HOSP.TC ---
Today's Communication/Plan
-
See plan
Assessment / Plan
Assessment / Plan
Physical Exam
General: Not in acute distress
HEENT: Normocephalic
Cardiovascular: S1/S2 and Regular Rhythm
Respiratory: Clear to Auscultation Bilaterally
Neurology: Awake, alert and oriented x 3. Cranial Nerves are grossly intact bilaterally. Motor strengths are 5/5 bilateral upper and lower extremities. Sensation grossly intact bilaterally throughout.
Skin: Warm and Dry
General: Comfortable
Assessment/Plan
Abrupt onset of right homonymous hemianopsia/left occipital penumbra
Abrupt onset of acute ischemic stroke
-Status post IV Tenecteplase (TNK) at 11:36 AM on 08/12/25
-Goal blood pressure over the next 24 hours is less than 180/105 mmHg -- prn Labetalol IV ordered
-MRI of the brain showed focal area of acute to subacute infarction involving the inferior left occipital lobe
-Echo showed PFO and possible RV thrombus: will need cardiac MRI to check for any RV thrombus and also bilateral lower extremity ultrasound to check for DVT
-Aspirin 81 mg one-time dose today, followed tomorrow (08/13/25 AM -- 48 hours from Stroke onset on 08/12/25 morning) by Apixaban 10 mg BID x7 days then 5 mg BID after that (if Cardiac MRI does not show RV thrombus,
then would be 5 mg BID to start with) -- I confirmed this on 08/13/25 with neurologist, production crew supervisor and inseam trimmer
-Outpatient PFO closure
-Lipid panel and hemoglobin A1c
-Start high intensity statin atorvastatin 80 mg at bedtime given LDL levels and stroke
-Goal blood glucose levels for patient would be less than 180 mg/dL
-Speech, PT, OT evaluations needed
-DVT prophylaxis with sequential compression devices for now, subq Lovenox 1x dose tonight, considering starting Eliquis tomorrow (as above)
-Okay to transfer to telemetry
-Per neurology, no need for hematology or hypercoagulable work-up while patient is inpatient in the hospital
-Patient should not drive until evaluated by outpatient occupational therapy and this was reviewed with the patient
Hypertension
-Blood pressure control
Suspected bicuspid aortic valve
Aortic regurgitation
Hyperlipidemia -- continue statin as above
Prediabetes
Obesity
MEAGAN (on CPAP)
Anticipated Discharge: 24 - 48 hours
Subjective/Interval History
-
Date of Service: August 13, 2025
Patient was seen and examined. He reported that although his vision has improved, he now has trouble with reading comprehension.
Objective Data
-
Labs:
Laboratory Results
08/13/25
04:00
WBC 7.4
Hgb 15.6
Hct 47.2
Plt Count 255
PT 13.2
INR 0.97
APTT 29.0
Sodium 136
Potassium 4.7
Chloride 108 H
Carbon Dioxide 22
BUN 21 H
Creatinine 1.1
Glucose 109 H
Calcium 10.1
Vital Signs:
Vital Signs
Temp Pulse Resp BP Pulse Ox
97.5 F 77 22 122/68 92
08/13/25 07:17 08/13/25 08:00 08/13/25 08:00 08/13/25 08:00 08/13/25 08:00
I&O
08/12/25 08/13/25 08/14/25
06:59 06:59 06:59
Intake Total 400 / 400
Output Total 0 / 0 0 / 0
Balance 400 / 400 0 / 0
[2025-08-13 08:39] LABS: Glycohemoglobin (HgbA1c) 5.6 % (4.0-5.6)
--- NOTE | 2025-08-13 13:00 | PTCARENOTE ---
MRI and RAYNA complete. All assessments unchanged.
--- NOTE | 2025-08-13 13:16 | CM ---
Patient off unit. Initial assessment completed with . Patient lives with his in a 2 story home plus basement with B/B on , 1/2 bath on , 5 steps to enter. 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 Has and uses a CPAP at [facility]. No other DME. No in-home services. Does have a HC-POA. No VA benefits. No psychiatric hospitalizations. PCP is [facility] in [place]. Pharmacy is [facility] on [address] in [place].
Discharge POC: Anticipate home with no needs.
[2025-08-13] MEDS: LOW STRENGTH ASPIRIN 81 MG PO (14:27)
--- NOTE | 2025-08-13 15:40 | W.PN.NEURO.1 ---
Today's Communication / Plan
-
Provide aspirin for 1 day then may begin apixaban as per cardiology
Initiate atorvastatin 80 mg daily due to LDL greater than 70
Appreciate cardiology evaluation and consider PFO closure as outpatient
Continue rehabilitation evaluations
Patient should not drive until evaluated by outpatient occupational therapy and this was reviewed with the patient
Outpatient hematology evaluation for hypercoagulable state
Neuro Assessment/Plan
Assessment
Abrupt onset of right homonymous hemianopsia, minimally demonstrated by clinical exam, clearly demonstrated by inability to read and by CT perfusion demonstrating a left occipital penumbra
Abrupt onset of acute ischemic stroke most likely due to a combination of right ventricular clot and patent foramen ovale. Possibility of a hypercoagulable state is not a limited at this time. Patient received tenecteplase.
Plan
Provide aspirin for 1 day then may begin apixaban as per cardiology
Initiate atorvastatin 80 mg daily due to LDL greater than 70
Appreciate cardiology evaluation and consider PFO closure as outpatient
Continue rehabilitation evaluations
Patient should not drive until evaluated by outpatient occupational therapy and this was reviewed with the patient
We will follow as needed.
Subjective/Objective
Subjective Data
Date of Service: August 13, 2025
Patient continues to have difficulty with reading.
Objective Data
Vital Signs
Temp Pulse Resp BP Pulse Ox
36.8 C 85 18 135/68 92
08/13/25 15:15 08/13/25 10:08 08/13/25 10:02 08/13/25 10:08 08/13/25 09:00
Lab Results
08/13/25 04:00
08/13/25 04:00
PT 13.2 Sec (11.4-14.6) 08/13/25 04:00
INR 0.97 08/13/25 04:00
APTT 29.0 Sec (23.4-35.0) 08/13/25 04:00
Sodium 136 mmol/L (135-145) 08/13/25 04:00
Potassium 4.7 mmol/L (3.5-5.1) 08/13/25 04:00
BUN 21 mg/dl (9-20) H 08/13/25 04:00
Glucose 109 mg/dl (70-99) H 08/13/25 04:00
Calcium 10.1 mg/dl (8.4-10.2) 08/13/25 04:00
LDL Cholesterol, Calc 145 mg/dl 08/13/25 04:00
Patient Allergies
No Known Allergies Allergy (Unverified 08/12/25 10:23)
Data Reviewed
-
MRI Head: Report Reviewed and Image Reviewed
Labs: Report Reviewed
Lipid Profile: Report Reviewed
Reviewed with: Physician, Patient and Family
Old Records: Summarized
Past History
Past History
ED Past Medical History: CVA, HTN and Other (PFO, )
Medications
-
Medications:
Generic Name Dose Route Start Last Admin
Trade Name Freq PRN Reason Stop Dose Admin
Acetaminophen 650 mg 08/12/25 12:25
Acetaminophen 325 Mg Tablet PO 09/09/25 12:24
Q4HPRN PRN
HAWKINS, mild pain, or temp >100.4F
Atorvastatin Calcium 80 mg 08/12/25 18:00 08/12/25 18:32
Atorvastatin (Lipitor) 80 Mg Tablet PO 09/09/25 17:59 80 mg
QPM DIANA Administration
Labetalol HCl 5 mg 08/12/25 12:35
Labetalol Hcl 5 Mg/1 Ml (20 Mg/4 Ml) Injection IV 09/09/25 12:34
Q6HPRN PRN
BP > 180/105 mmHg
Sodium Chloride 0 flush 08/12/25 14:00
Sodium Chloride 0.9% (Flush) Syringe IV 09/09/25 13:59
PER PROTOCOL DIANA
--- NOTE | 2025-08-13 17:33 | W.PN.UPDATE ---
Update Note
Progress Note Update
RAYNA shows PFO. Also RV thrombus vs prominent moderator band. Plan will be cardiac MRI for additional evaluation. And start eliquis tomorrow.
Discussed with interventional cards. Upon d/c, will need to arrange for 2 week monitor and consult with Dr Amaral for evaluation for PFO closure.
[2025-08-13] MEDS: LOVENOX 40 MG SC (17:44)
[2025-08-13] MEDS: LIPITOR 80 MG PO (17:44)
[2025-08-14] VITALS: BP 109/66
[2025-08-14 03:04] VITALS: BP 108/65
[2025-08-14 04:00] VITALS: BP 108/65
[2025-08-14 07:00] VITALS: BP 124/64
--- NOTE | 2025-08-14 07:51 | W.PN.CD ---
Today's Communication / Plan
-
-will need 2 week op monitor
-will arrange evaluation with Dr Amaral as op
-will arrange for OP Cardiac MRI to further evaluate RV finding meanwhile will continue apixiban
-He will need an op hematology evaluation as part of PFO work up
-ok for discharge from cardiac perspective
Impression / Plan
-
I/P: 55M with hypertension, suspected bicuspid aortic valve, aortic regurgitation, hyperlipidemia, prediabetes, obesity, and MEAGAN (on CPAP) presented to the emergency department with a visual deficit.
Primary crop duster helper: Dr. Zazueta
CVA, s/p TNK
- threat to life
- Presented with visual field cut
- CT perfusion suggestive of hyperacute lack of blood flow in the left occipital lobe s/p TNK
- Follow telemetry: no A fib so far
- RAYNA with PFO, also ?prominanty moderator band vs RV thrombus
-will start apixiban 5mg po bid
- cont atorvastatin
PFO: in the setting of CVA:
-will need 2 week op monitor
-will arrange evaluation with Dr Amaral as op
-will arrange for OP Cardiac MRI to further evaluate RV finding meanwhile will continue apixiban
-agree with HANNAH for rule out DVT
-He will need an op hematology evaluation as part of his PFO eval
Hypertension
- Per neurology goal BP <185 SBP & 110 DBP
- Follow BP with lisinopril on hold
bicuspid aortic valve with mild to moderate AR
- TTE showed EF 60-65%, mild/mod AR
-1Degree relatives should be screened
Hypercholesterolemia
- statin started
Prediabetes, HgbA1c pending
MEAGAN, continue CPAP
Obesity, BMI 42.7, affects all aspects of care, he would benefit from weight loss
RAYNA: 08/13/25:
SUMMARY
1. Normal left ventricular size, wall thickness and systolic function. Estimated LVEF 55-60%.
2. No thrombus in the VALDEZ.
3. Aortic valve is bicuspid. Moderate eccentric aortic regurgitation.
4. Echodensity visualized in RV apex. Differential diagnosis includes thrombus vs prominent moderator band. Follow up cardiac MRI has been ordered.
5. Interatrial septum is hypermobile. Bubble study shows evidence of patent foramen ovale with right to left shunt.
Physical Exam
Vital Signs/Labs
Vital Signs
Temp Pulse Resp BP Pulse Ox
98.3 F 70 18 108/65 97
08/14/25 03:04 08/14/25 04:00 08/14/25 03:04 08/14/25 04:00 08/14/25 03:04
08/13/25 08/14/25 08/15/25
06:59 06:59 06:59
Actual Weight 268 lb 15.423 oz
PT 13.2 Sec (11.4-14.6) 08/13/25 04:00
INR 0.97 08/13/25 04:00
APTT 29.0 Sec (23.4-35.0) 08/13/25 04:00
Magnesium 2.1 mg/dl (1.6-2.3) 08/12/25 11:35
Triglycerides 167 mg/dl (10-149) H 08/13/25 04:00
LDL Cholesterol, Calc 145 mg/dl 08/13/25 04:00
VLDL Cholesterol, Calc 33 mg/dl (0-30) H 08/13/25 04:00
HDL Cholesterol 40 mg/dl 08/13/25 04:00
Physical Exam
Constitutional: No acute distress
Cardiovascular: Rhythm & rate is regular, Pedal edema is absent, JVD pressure is normal, Systolic murmur absent and Diastolic murmur absent
Respiratory: Respiratory effort normal, Lungs clear to auscul., Wheeze Absent, Crackles Absent and Rhonchi Absent
Neuro/Psych: AO x 3
Data Reviewed
-
Date of Service: August 14, 2025
Medical Decision Making: Review of Case with other Provider (Dr Aguayo: op eval being set up with cards, will need op hematology eval)
EKG: Other (tele sinus)
[2025-08-14 08:00] VITALS: BP 124/64
[2025-08-14] MEDS: ELIQUIS 5 MG PO ×2 (08:03→09:16)
[2025-08-14 08:19] LABS: Hematocrit 45.4 % (39.0-52.0); Hemoglobin 15.1 g/dL (13.0-18.0); Mean Corp Hgb Conc. 33.3 g/dL (33.0-37.0); Mean Corpuscular Volume 97.2 fL (80.0-94.0); Platelet Count 256 10^3/uL (130-400); Red Cell Dist. Width 12.6 % (11.5-14.5)
--- NOTE | 2025-08-14 08:47 | W.PN.HOSP.TC ---
Today's Communication/Plan
-
Discharge today
Assessment / Plan
Assessment / Plan
Physical Exam
General: Not in acute distress
HEENT: Normocephalic
Cardiovascular: S1/S2 and Regular Rhythm
Respiratory: Clear to Auscultation Bilaterally
Neurology: Awake, alert and oriented x 3. Cranial Nerves are grossly intact bilaterally. Motor strengths are 5/5 bilateral upper and lower extremities. Sensation grossly intact bilaterally throughout.
Skin: Warm and Dry
General: Comfortable
Assessment/Plan
Abrupt onset of right homonymous hemianopsia/left occipital penumbra
Abrupt onset of acute ischemic stroke
Patent Foramen Ovale
Concern for Right Ventricular Thrombus
-Status post IV Tenecteplase (TNK) at 11:36 AM on 08/12/25
-MRI of the brain showed focal area of acute to subacute infarction involving the inferior left occipital lobe
-Echo showed PFO and possible RV thrombus: will need outpatient cardiac MRI to check for any RV thrombus and also bilateral lower extremity ultrasound to check for DVT
-I confirmed with Dr. Mckenna and Dr. Bae that patient needs: Apixaban 10 mg BID x7 days then 5 mg BID after that
-Outpatient PFO closure
-[employer] Saw Tender Dr. Mckenna will arrange for a 2-week outpatient heart monitor
-Follow-up with neurodiagnostic technician Dr. Javid Amaral ([facility] cardiology office should arrange)
-Lipid panel and hemoglobin A1c
-Continue high intensity statin atorvastatin 80 mg at bedtime given LDL levels and stroke
-Goal blood glucose levels for patient would be less than 180 mg/dL
-Speech, PT, OT evaluations needed
-DVT prophylaxis with sequential compression devices for now, subq Lovenox 1x dose tonight, considering starting Eliquis tomorrow (as above)
-Okay to transfer to telemetry
-Per neurology, no need for hematology or hypercoagulable work-up while patient is inpatient in the hospital
-Outpatient hematology referral/evaluation
-Patient should not drive until evaluated by outpatient occupational therapy/press tool maker and this was reviewed with the patient
Hypertension
-Blood pressure control
Suspected bicuspid aortic valve
Aortic regurgitation
Hyperlipidemia -- continue statin as above
Prediabetes
Obesity
MEAGAN (on CPAP)
-Follow-up with pulmonary outpatient
More than 30 minutes spent in discharge including
Final examination of the patient
Summarizing hospital stay
Instructions for continuing care to all relevant caregivers
Preparation of discharge records, prescriptions, and referral forms
Total time spent (in minutes): 43
Anticipated Discharge: Today
Subjective/Interval History
-
Date of Service: August 14, 2025
Patient was seen and examined. No new symptoms or complaints since yesterday.
Objective Data
-
Labs:
Laboratory Results
08/14/25
07:42
WBC 7.5
Hgb 15.1
Hct 45.4
Plt Count 256
Sodium Pending
Potassium Pending
Chloride Pending
Carbon Dioxide Pending
BUN Pending
Creatinine Pending
Glucose Pending
Calcium Pending
Vital Signs:
Vital Signs
Temp Pulse Resp BP Pulse Ox
98.9 F 71 17 124/64 95
08/14/25 07:00 08/14/25 07:00 08/14/25 07:00 08/14/25 07:00 08/14/25 07:00
I&O
08/13/25 08/14/25 08/15/25
06:59 06:59 06:59
Intake Total 400 / 400 480 / 480
Output Total 0 / 0 0 / 0
Balance 400 / 400 480 / 480
[2025-08-14 09:16] LABS: Blood Urea Nitrogen 22 mg/dl (9-20); Calcium 9.7 mg/dl (8.4-10.2); Carbon Dioxide 22 mmol/L (22-30); Chloride 106 mmol/L (98-107); Estimated Creatinine Clearance 87 ml/min; Glucose 104 mg/dl (70-99); Potassium 4.5 mmol/L (3.5-5.1); Sodium 135 mmol/L (135-145); eGFR > 60.00
--- NOTE | 2025-08-14 10:46 | CM ---
Chart reviewed. Patient will potentially d/c home today
CM consulted for Eliquis coverage. Patient has [facility] rx plan
CM called patient's [facility] who confirmed E-script sent. Confirmed patient's co pay is $30
Reviewed patient's rx benefits. Eliquis is covered, $30 co pay for 30 day supply, $60 co pay for 90 day supply
Updated hospitalist
Plan: Home, no needs
[2025-08-14 11:34] VITALS: BP 124/79
--- NOTE | 2025-08-14 13:05 | W.DCSUMMARY ---
Discharge Summary
Discharge Data
Date of Admission: 08/12/25
Date of Discharge: 08/14/25
Total time spent discharging patient (in min): 43
-
Pending Results: No
Hospital Course
55-year-old male with past medical history of hypertension, suspected bicuspid aortic valve, aortic regurgitation, hyperlipidemia, prediabetes, obesity, and MEAGAN (on CPAP) presented to the [facility] emergency room due to sudden onset of loss of vision on
the right side while he was at work around 9:40 AM on 08/12/25. 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
After arrival to the emergency department, CT perfusion showed evidence of hyperacute lack of blood flow in the left occipital lobe. Patient was given TNK. He was admitted to the intensive care unit and post-TNK stroke protocol was followed.
Cardiology was consulted for transesophageal echocardiogram (RAYNA). MRI Brain was performed, and showed a focal left-sided acute/subacute infarction in the occipital lobe. RAYNA showed a patent foramen ovale (PFO) and possible right ventricular
thrombus. Neurology recommended providing one-time Aspirin dose on 08/13/25, and the could start anticoagulation 48 hours from stroke onset. Eliquis was started on 08/14/25. Patient's vision symptoms resolved. Patient's lower extremity ultrasound
was negative for DVT. On the day of discharge, I confirmed via [place] [employer] communication with senior java ui developer Dr. Mckenna that patient should be discharged on Eliquis 10 mg BID for 7 days, followed by Eliquis 5 mg BID given his PFO and possible RV
thrombus. Patient would need to get a cardiac MRI outpatient. Patient was stable for discharge with outpatient follow-up.
Discharge Plan
-
Patient Disposition: Home (Routine Discharge)
Discharge Diagnosis/Procedures: Abrupt onset of right homonymous hemianopsia/left occipital penumbra
Abrupt onset of acute ischemic stroke
Patent Foramen Ovale
Concern for Right Ventricular Thrombus
Hypertension
Suspected bicuspid aortic valve
Aortic regurgitation
Hyperlipidemia -- continue statin as above
Prediabetes
Obesity
MEAGAN (on CPAP)
Condition: Good
Diet: Low Fat, Low Cholesterol, Low Sodium and Diabetic, Carb Controlled
Activity: As tolerated
Driving Restrictions: No driving
Blood Work: CBC and BMP in 1 week
Others Tests: Cardiac MRI and satellite project site monitor- cardiology office will call to arrange
Activity Restrictions/Additional Instructions:
You can either log into your patient portal or ask nurse or manager community outreach to print out all the imaging (e.g. CT, MRI) results for you before you leave
Outpatient hematology referral/evaluation -- call [facility] (phone number included in the discharge papers) to set up an appointment, tell them you had stroke and need hypercoagulable work-up
You should not drive until evaluated by outpatient occupational therapy/counter person and this was reviewed with the patient
Budget Counselor Dr. Mckenna will arrange for a 2-week outpatient heart monitor
Follow-up with senior java ui developer Dr. Javid Amaral ([facility] Cardiology office should arrange)
You will need outpatient cardiac MRI to check for any Right Ventricular thrombus. You will also need closure of your Patent Foramen Ovale outpatient. Both of these things will need to be arranged by cardiology office.
Instructions: Apixaban, Atorvastatin, Lisinopril
Referrals:
Ramya Carrion CRNP [Specified Professional Personl, Neurology] - in two to three weeks
Referral Note: Hospital Stroke Follow-Up
Tina Prieto MD [Active, Hematology / Oncology] - in two to four weeks
Referral Note: Needs hypercoagulable work-up for stroke, needs appointment with drawing in machine tender soon
Nils Scherer MD [Active, Pulmonary Medicine] - in two to three weeks
aJvid Amaral DO [Active, Cardiology] - 09/11/25 1:40 pm
Referral Note: Discuss PFO closure
Yanni Abad PA [Family Provider] - in less than 1 week
Additional Discharge Medication Instructions: Apixaban (Eliquis) is 10 mg BID for 7 days (you have already received the first 10 mg dose in the hospital on 08/14/25), followed by Apixaban (Eliquis) 5 mg BID after that -- contact your primary care
office for refills.
Prescriptions:
New
Eliquis 5 mg Tablet
10 mg PO BID 7 Days Qty: 26 0RF
Rx Instructions:
First dose 08/14/25 evening
Eliquis 5 mg tablet
5 mg PO BID Qty: 60 3RF
Rx Instructions:
First dose 08/21/25 morning
atorvastatin 80 mg Tablet
80 mg PO QPM Qty: 30 1RF
Continued
lisinopril 20 mg tablet
20 mg PO DAILY
Discharge Orders:
Discharge Patient (As Directed); Ordered 08/14/25
Ordered By: Bruce Aguayo
Discharge Date and Time
Discharge Date/Time: 08/14/25 14:20
Print Language: SLOVENIAN
== END 2025-08-14 14:20 | disposition home or self-care (01) | DRG 62 ==
LOC: 4 WEST ACU 12:18
PROVIDERS: Internal Medicine; Student in an Organized Health Care Education/Training Program; ADMITTING PHYSICIAN Hospitalist; ATTENDING PHYSICIAN Hospitalist; CONSULT PHYSICIAN Internal Medicine Cardiovascular Disease; CONSULT PHYSICIAN Internal Medicine Critical Care Medicine; CONSULT PHYSICIAN Psychiatry & Neurology Neurology; EMERGENCY PHYSICIAN Emergency Medicine; FAMILY PHYSICIAN Physician Assistant
PROC: 3E03317 Introduction of Other Thrombolytic into Peripheral Vein, Percutaneous Approach (ICD-10-PCS; 2025-08-12)
PROC: B24BZZ4 Ultrasonography of Heart with Aorta, Transesophageal (ICD-10-PCS; 2025-08-13)
DX: I63.439 Cerebral infarction due to embolism of unspecified posterior cerebral artery (principal); E87.1 Hypo-osmolality and hyponatremia; Z68.41 Body mass index [BMI] 40.0-44.9, adult; Q21.12 Patent foramen ovale; I10 Essential (primary) hypertension; G47.33 Obstructive sleep apnea (adult) (pediatric); I35.1 Nonrheumatic aortic (valve) insufficiency; E78.2 Mixed hyperlipidemia; E66.9 Obesity, unspecified; H53.8 Other visual disturbances; R73.03 Prediabetes; I70.0 Atherosclerosis of aorta; Q23.81 Bicuspid aortic valve; Z79.899 Other long term (current) drug therapy
CPT/HCPCS: 0042T; 70450; 70496; 70498; 70551; 71045; 80048; 80053; 80061; 83036; 83735; 85027; 85610; 85730; 92610; 93005; 93306; 93312; 93320; 93325; 93970; 97161; 97167; 99285; J3101; Q9950; Q9967

== ENCOUNTER → 2025-08-22 08:30 | Outpatient (REF) | payer BC, SELFPAY | LOC: MRI 08:30 | PROVIDERS: ATTENDING PHYSICIAN Internal Medicine Cardiovascular Disease; FAMILY PHYSICIAN Physician Assistant | DX: Q21.12 Patent foramen ovale (principal); I51.3 Intracardiac thrombosis, not elsewhere classified | CPT/HCPCS: 75561; 75565; A9585 ==

== ENCOUNTER 2025-10-14 06:52 | Outpatient (RCR) | payer BC, SELFPAY | END 2025-10-14 23:59 | disposition home or self-care (01) | LOC: ROT 06:52 | PROVIDERS: ATTENDING PHYSICIAN Nurse Practitioner Adult Health; FAMILY PHYSICIAN Physician Assistant | DX: I69.312 Visuospatial deficit and spatial neglect following cerebral infarction (principal); Z73.6 Limitation of activities due to disability; R48.0 Dyslexia and alexia; I69.328 Other speech and language deficits following cerebral infarction | CPT/HCPCS: 92507; 92523; 97110; 97166; 97530 ==

== ENCOUNTER 2025-10-15 05:55 | Day surgery (SDC) | payer BC, SELFPAY ==
--- NOTE | 2025-10-09 09:58 | HPS.HSE ---
Addendum entered and electronically signed by Javid Amaral DO 10/15/25 09:48:
Attestation: I have seen and examined the patient. I can confirm Ms. Pñealoza's findings and I agree with her assessment and plan as documented. 55-year-old gentleman with patent foramen ovale and cryptogenic stroke with negative workup for
hypercoagulable panel and atrial fibrillation presenting for elective PFO closure.
Original Note:
Family Physician
-
Family Physician: Yanni Abad
Chief Complaint
-
PFO. Cerebrovascular accident.
History of Present Illness
The patient is a 55 year old male presenting today after experiencing a recent stroke. He was hospitalized in late July after reports of sudden right eye visual loss while working. A Brain MRI revealed a focal area of acute to subacute
infarction involving the inferior left occipital lobe. There was no evidence of atrial fibrillation during his hospital stay. A transesophageal echocardiogram diagnosed a PFO but also commented on a possible right ventricular thrombus. He was
started on Apixaban for secondary prevention in light of possible LV thrombus versus prominent moderator band and a cardiac MRI was arranged. His cardiac MRI showed evidence of prominent moderator band with thankfully no RV thrombus. An outpatient
Holter monitor upon discharge showed no evidence of arrhythmia. A recent hypercoagulable work-up confirmed no hypercoagulable state. Given all this, he is likely to benefit from a PFO closure at this time. He denies any current complaints today such
as chest pain, shortness of breath, palpitations, nausea, vomiting, diarrhea, lightheadedness, dizziness, cough, sore throat, or fever.
Medical History
Past Medical History
Past Medical History: Reports Other
Additional Past Medical History:
1. PFO.
2. Left occipital lobe CVA, 07/2025, with residual mild aphasia and reading difficulties.
3. Hypertension with recent hypotension.
4. Hyperlipidemia.
5. First degree AV block.
6. Bicuspid aortic valve with moderate aortic regurgitation.
7. Obstructive sleep apnea, compliant with CPAP.
8. Colon polyps.
9. Lumbar herniated discs.
10. Prediabetes.
11. Morbid obesity, BMI 42.4.
Past Surgical History: Reports Other
Additional Past Surgical History:
1. Transesophageal echocardiogram.
2. Lumbar microdiscectomy.
3. Right shoulder reconstruction.
4. Left hand surgery.
5. Prostate biopsy.
6. Colonoscopy.
Social History
Tobacco: Non-smoker
Alcohol: Other (He, on average, drinks 2 alcoholic beverages once a week. )
Personal:
Living: Other (He lives with his in a 2 story home. )
Family History
Family History: Not pertinent
Allergies / Home Medications
Allergy/Medication List:
Home medications:
1. Apixaban 5 mg p.o. twice a day.
2. Atorvastatin 80 mg p.o. every evening.
3. Lisinopril 20 mg p.o. daily.
Allergies: No known allergies.
Review of Systems
-
A 12 point ROS was completed and negative except as noted: Yes
Physical Exam
Vital Signs
Blood pressure 102/68. Heart rate 75. Respirations 18. Pulse ox 96% on room air.
Height 5 feet, 7 inches. Weight 122.8 kg. BMI 42.4.
Physical Exam
General: Well Developed, Well Nourished and No Apparent Distress
HEENT: NormoCephalic, Moist mucous membranes, Atraumatic and PERRLA
Respiratory: Clear
Cardiac: Regular Rhythm
GI: Soft, Non Tender, Non Distended and Other (Morbidly obese. )
Musculoskeletal: No Edema and Normal Gait & Station
Skin: Warm and Dry
Neuro: AO x 3, Cranial Nerves Intact and Other (Speech appears normal. )
Laboratory Results
-
DIAGNOSTIC STUDIES as of 10/09/2025: White blood cell count 6.6. Hemoglobin 15.0. Platelet count 283,000. Sodium 137. Potassium 4.8. BUN 23. Creatinine 1.1. Glucose 102. Calcium 9.7. AST 25. ALT 40. Albumin 4.5.
EKG 10/09/2025: Sinus rhythm with first degree AV block.
Transesophageal echocardiogram 08/13/2025: Normal left ventricular size, wall thickness and systolic function. Estimated LVEF 55-60%. No thrombus in the VALDEZ. Aortic valve is bicuspid. Moderate eccentric aortic regurgitation. Echodensity visualized
in RV apex. Differential diagnosis includes thrombus vs prominent moderator band. Follow up cardiac MRI has been ordered. Interatrial septum is hypermobile. Bubble study shows evidence of patent foramen ovale with right to left shunt.
Cardiac MRI 08/22/2025: There is no MR evidence for right ventricular thrombus. Echo density seen within the right ventricular apex on transesophageal echocardiography is likely prominent moderator band.
Impression/Plan
-
IMPRESSION/PLAN:
1. PFO and cerebrovascular accident: The patient is in need of a PFO closure with Dr. Javid Amaral on 10/15/2025. The benefits and risks of the procedure have been explained to the patient. The patient understands these risks and wishes to proceed.
He is aware to hold his Apixaban 3 days prior to his procedure. While holding Apixaban, he will start a baby Aspirin. He is aware to take baby Aspirin daily, up to and including the morning of his procedure.
[2025-10-09 10:03] VITALS: BMI 42.4
[2025-10-09 10:30] LABS: Hematocrit 43.6 % (39.0-52.0); Hemoglobin 15.0 g/dL (13.0-18.0); Mean Corp Hgb Conc. 34.4 g/dL (33.0-37.0); Mean Corpuscular Volume 95.0 fL (80.0-94.0); Nucleated Red Blood Cells % 0 % (-); Platelet Count 283 10^3/uL (130-400); Red Cell Dist. Width 12.5 % (11.5-14.5)
[2025-10-09 12:08] LABS: ALT (SGPT) 40 U/L (0-50); AST (SGOT) 25 U/L (17-59); Albumin 4.5 g/dl (3.5-5.0); Alkaline Phosphatase 83 U/L (38-126); Calcium 9.7 mg/dl (8.4-10.2); Carbon Dioxide 22 mmol/L (22-30); Chloride 106 mmol/L (98-107); Estimated Creatinine Clearance 95 ml/min; Glucose 102 mg/dl (70-99); Potassium 4.8 mmol/L (3.5-5.1); Sodium 137 mmol/L (135-145); Total Protein 7.3 g/dl (6.3-8.2); eGFR > 60.00
[2025-10-09 12:23] LABS: Blood Urea Nitrogen 23 mg/dl (9-20)
[2025-10-15] VITALS (14 sets, daily range): BP systolic 100–125; BP diastolic 54–84; BMI 42.3
[2025-10-15] MEDS: PLAVIX 600 MG PO (07:28)
[2025-10-15] MEDS: ANCEF 15 MG IV (07:30)
[2025-10-15 09:08] LABS: ACT-LR - POC 273 Seconds (116-155)
[2025-10-15 09:25] LABS: ACT-LR - POC 276 Seconds (116-155)
--- NOTE | 2025-10-15 09:48 | ITS.CL.PN ---
[facility] - Procedure Note
Procedure
Procedure Note:
Patent Foramen Ovale Closure
Date of procedure: 10/15/2025
Referring physician: Sotero Zazueta M.D.
Pre-op diagnosis: PFO.
Post-op diagnosis: PFO.
Indication: Cryptogenic CVA.
Procedure performed: Intracardiac echocardiography, percutaneous patent foramen ovale closure.
nitro man: Javid Amaral D.O.
Type of echocardiography: 9 [place]ese intracardiac echocardiography (ICE).
Certified Phlebotomist: Javid Amaral D.O.
A total of 77 minutes of procedural/moderate sedation was utilized. An independent pediatric medical assistant was present to assist with and help manage the patient's level of consciousness and physiologic status.
Access:
1. 9 Taiwanese 23 cm sheath in the left common femoral vein using a micro-puncture kit under US guidance.
2. 9 [place]ese Talisman sheath in the right common femoral vein using a micro-puncture kit under US guidance.
Procedure:
The patient was brought to the interventional cardiology suite in fasting state. The patient was given 2 g of cefazolin IV. After performing a timeout the patient was given conscious sedation. Bilateral femoral areas were prepped and draped in
standard sterile fashion.
The left femoral vein was accessed using a modified Seldinger technique. A 6 Taiwanese sheath was advanced into the left femoral vein. A standard J-wire was advanced up into the inferior vena cava up to the level right atrium. The 6 [place]ese sheath was
withdrawn and the vein was pre-closed with a Perc-Close device. A 9 [place]ese 23 cm sheath was advanced from the left femoral vein into the inferior vena cava. The ICE probe was advanced through this long sheath and up to the level right atrium.
Using ICE, we were able to identify the interatrial septum and is associated defect.
The right femoral vein was accessed using a modified Seldinger technique and a 6 [place]ese sheath was placed. The right vein was pre-closed with a Perc-Close device and the sheath was upsized to a 9 [place]ese sheath. IV heparin was given to achieve an
ACT greater than 250 seconds. A standard J-wire was advanced from the right femoral vein and up into the superior vena cava and a multipurpose catheter was advanced over this wire. The J-wire was removed and catheter was flushed. An angled
Glidewire was advanced through the multipurpose catheter though did not leave the catheter tip. The multipurpose catheter was slowly withdrawn from the superior vena cava facing slightly posterior and medial. The multipurpose catheter settled in the
area of the PFO. The angled Glidewire was advanced through the defect and into the left superior pulmonary vein. The multipurpose catheter was advanced over the Glidewire into the left upper pulmonary vein. Heparin 12,000 units was given. The
Glidewire was removed and the catheter was flushed. A Joyce wire was advanced through the multipurpose catheter and into the left upper pulmonary vein.
On the back table, we turned our attention to prepping the closure device. The #25 PFO Amplatzer, Tuohy-Aneesh valve and its extension were appropriately flushed. The device was submerged in water and the valve and extension were slowly flush with
water while the occlusion device was retracted into it, ensuring that the device was completely de-aired.
The multipurpose catheter and the 9 Taiwanese sheath were removed. The 9 Taiwanese Talisman delivery sheath was advanced over the Joyce wire into the left atrium. After ensuring good placement, the dilator and the Joyce wire were slowly removed and the
sheath was de-aired and flushed. We connected the sheath with the closure device assembly with a wet to wet connection. The occluder was advanced through the sheath and into the left atrium. Left atrial disc was deployed. The entire assembly was
retracted until the left atrial disc was firmly against the interatrial wall. The right atrial disc was deployed under tension and allowed to settle on the right atrial side of the septum.
Echocardiographic images were obtained in multiple views showing good placement of the occlusion device. The interatrial septum is clearly visible between the 2 discs. The discs do not appear to be interfering with the aorta. After performing
appropriate pushing and pulling of the device to ensure good placement ([place] tug/wiggle), the device was released. Once again, echocardiography confirmed good placement.
The Talisman sheath was removed from the right femoral vein and the Perc-Close was tightened with good hemostasis. Additional manual pressure was held for 10 minutes.
The ICE catheter was withdrawn. The left femoral sheath was removed and the Perc-Close was tightened with good hemostasis. Additional manual pressure was held for 10 minutes.
Hemodynamics:
RA (a/v/x, mmHg): Not obtained.
RV (s/x, mmHg): Not obtained.
PA (s/d/x, mmHg): Not obtained.
PCWP (a/v/x, mmHg): Not obtained.
LA (a/v/x, mmHg): 27/25/20
LV (s/x, mmHg): Not obtained.
Ao (s/d/x, mmHg): Not obtained.
Oxygen Saturation (%):
RA: Not obtained.
RV: Not obtained.
PA: Not obtained.
PCWP: Not obtained.
LA: 95.2
LV: Not obtained.
Ao: Not obtained.
Radiation:
Dose (mGy): 536
DAP (Gy/cm2): 55.2
Fluoroscopy Time (minutes): 18.8
Conclusions:
1. Successful ICE guided PFO closure using a #20 Amplatzer PFO device with no acute complications.
2. Moderate left atrial hypertension (LA pressure = 20 mmHg at 122.8 kg).
Recommendations:
1. Routine care post PFO closure.
2. Limited weight bearing for 2 days.
3. DAPT with aspirin and clopidogrel for 3-6 months, followed by aspirin indefinitely.
4. Limited echocardiogram with agitated saline.
5. Repeat echocardiogram in 6 months.
6. Consider some gentle diuresis given elevation in left atrial pressure.
Javid Amaral, DO, FACC, FACP
Copy to: Sotero Zazueta M.D., Yanni Abad PA-C
[2025-10-15] MEDS: ANCEF 5 IV (13:47)
== END 2025-10-15 14:00 | disposition home or self-care (01) ==
LOC: CATH 05:55
PROVIDERS: ATTENDING PHYSICIAN Internal Medicine Cardiovascular Disease; FAMILY PHYSICIAN Physician Assistant; OTHER PHYSICIAN Internal Medicine
DX: Q21.12 Patent foramen ovale (principal); I63.9 Cerebral infarction, unspecified; I10 Essential (primary) hypertension; I95.9 Hypotension, unspecified; E78.5 Hyperlipidemia, unspecified; I44.0 Atrioventricular block, first degree; Q23.81 Bicuspid aortic valve; G47.33 Obstructive sleep apnea (adult) (pediatric); I35.1 Nonrheumatic aortic (valve) insufficiency; Z86.0100 Personal history of colon polyps, unspecified; M51.26 Other intervertebral disc displacement, lumbar region; R73.03 Prediabetes; E66.01 Morbid (severe) obesity due to excess calories; Z68.41 Body mass index [BMI] 40.0-44.9, adult; H54.61 Unqualified visual loss, right eye, normal vision left eye
CPT/HCPCS: 93580; 99152; 99153; 36415; 80053; 85025; 85347; 93005; 93306; C1760; C1769; C1817; C1892; C1894